=== PATIENT | female | born 1990 | race Caucasian/White ===

== ENCOUNTER 2017-09-24 00:43 | Emergency (ER) | payer MEDICAID ==
[~2017-09-24] VITALS: Ht 157.5 cm; Wt 44.9 kg
[~2017-09-24 00:43] MED LIST: ARIP5TAB4 PO; CEPH500C5 PO; CLON-528 PO; HYDR1TAB PO; IBUP-1985 PO; KETO15CR2 TOP; LAMO100T2 PO; NAPR-232 PO; NITR100C11 PO; NITR100C6 PO; ONDA4TAB59 PO; ONDA4TAB6 PO; PHEN-824 PO; PHEN-873 PO; TRAM50TA2 PO
[2017-09-24 00:48] VITALS: BP 123/85
[2017-09-24] MEDS ORDERED: ondansetron 4mg rapidly disintigrating tab PO ONE (00:50)
[2017-09-24] MEDS ORDERED: HYDROcodone/acetaminophen 5mg/325mg tablet PO ONE (00:50)
[2017-09-24] MEDS ORDERED: ONDA4TAB9 PO (01:07)
[2017-09-24] MEDS ORDERED: HYDR-3965 PO (01:07)
== END 2017-09-24 01:34 | disposition home or self-care (01) ==
LOC: ER 00:45
DX: S63.501A Unspecified sprain of right wrist, initial encounter (principal); S60.211A Contusion of right wrist, initial encounter; F15.10 Other stimulant abuse, uncomplicated; W31.2XXA Contact with powered woodworking and forming machines, initial encounter; Y93.89 Activity, other specified; Y92.89 Other specified places as the place of occurrence of the external cause; Y99.8 Other external cause status; Z98.890 Other specified postprocedural states; Z79.899 Other long term (current) drug therapy
CPT/HCPCS: 29125; 73110; 73130; 99284; A6449

== ENCOUNTER 2017-09-27 09:51 | Emergency (ER) | payer MEDICAID ==
[~2017-09-27] VITALS: Ht 157.5 cm; Wt 43.0 kg
[~2017-09-27 09:51] MED LIST changes: +HYDR-3965 PO; +ONDA4TAB9 PO
[2017-09-27 09:55] VITALS: BP 123/84
[2017-09-27] MEDS ORDERED: TRIA15CR61 TOP (10:53)
[2017-09-27] MEDS ORDERED: PRED10TA23 PO (10:54)
== END 2017-09-27 11:35 | disposition home or self-care (01) ==
LOC: ER 09:52
DX: L23.7 Allergic contact dermatitis due to plants, except food (principal); F12.10 Cannabis abuse, uncomplicated; F11.10 Opioid abuse, uncomplicated; Z79.899 Other long term (current) drug therapy
CPT/HCPCS: 99283

== ENCOUNTER 2017-10-03 10:36 | Outpatient (CLI) | payer MEDICAID ==
[~2017-10-03 10:36] MED LIST changes: +PRED10TA23 PO; +TRIA15CR61 TOP
[2017-10-03 10:37] VITALS: BP 131/84
[2017-10-03 10:48] VITALS: BP 131/84
== END 2017-10-03 11:20 | disposition home or self-care (01) ==
LOC: ORTHO 10:36
PROVIDERS: ATTEND Nurse Practitioner Family
DX: S69.91XA Unspecified injury of right wrist, hand and finger(s), initial encounter (principal); F17.210 Nicotine dependence, cigarettes, uncomplicated; X58.XXXA Exposure to other specified factors, initial encounter; Y93.89 Activity, other specified; Y92.89 Other specified places as the place of occurrence of the external cause; Y99.8 Other external cause status
CPT/HCPCS: 29075; A4590

== ENCOUNTER 2017-10-17 13:55 | Outpatient (CLI) | payer MEDICAID | END 2017-10-17 14:15 | disposition home or self-care (01) | LOC: ORTHO 13:55 | PROVIDERS: ATTEND Nurse Practitioner Family | DX: S69.91XD Unspecified injury of right wrist, hand and finger(s), subsequent encounter (principal); F17.210 Nicotine dependence, cigarettes, uncomplicated; X58.XXXD Exposure to other specified factors, subsequent encounter | CPT/HCPCS: 29260; 73110 ==

== ENCOUNTER 2017-11-08 10:12 | Emergency (ER) | payer MEDICAID ==
[~2017-11-08] VITALS: Ht 154.9 cm; Wt 45.5 kg
[~2017-11-08 10:12] MED LIST changes: -HYDR-3965 PO; -ONDA4TAB9 PO; -PRED10TA23 PO; -TRIA15CR61 TOP
[2017-11-08 10:22] VITALS: BP 111/80
[2017-11-08] MEDS ORDERED: LIDOcaine 1.5% w/epinephrine 1:200,000 5ml ampul IJ ONE (11:00)
[2017-11-08] MEDS ORDERED: CEPH-572 PO (11:25)
[2017-11-08] MEDS ORDERED: SULF1TAB49 PO (11:25)
[2017-11-08] MEDS ORDERED: HYDR-565 PO (21:52)
== END 2017-11-08 11:40 | disposition home or self-care (01) ==
LOC: ER 10:13
DX: L02.416 Cutaneous abscess of left lower limb (principal); Z79.899 Other long term (current) drug therapy
CPT/HCPCS: 10060; 99283; A6449; J3490

== ENCOUNTER 2017-11-08 21:42 | Emergency (ER) | payer MEDICAID ==
[~2017-11-08] VITALS: Ht 154.9 cm; Wt 48.0 kg
[~2017-11-08 21:42] MED LIST changes: +CEPH-572 PO; +SULF1TAB49 PO
[2017-11-08] MEDS ORDERED: HYDR-565 PO (21:52)
[2017-11-08 21:59] VITALS: BP 137/70
== END 2017-11-08 22:00 | disposition home or self-care (01) ==
LOC: ER 21:43
DX: Z00.8 Encounter for other general examination (principal); L02.416 Cutaneous abscess of left lower limb; M79.652 Pain in left thigh; Z90.49 Acquired absence of other specified parts of digestive tract; Z79.899 Other long term (current) drug therapy
CPT/HCPCS: 99283

== ENCOUNTER 2017-11-10 17:44 | Emergency (ER) | payer MEDICAID ==
[~2017-11-10] VITALS: Ht 154.9 cm; Wt 47.1 kg
[~2017-11-10 17:44] MED LIST changes: +HYDR-565 PO
[2017-11-10 17:48] VITALS: BP 127/85
[2017-11-11] MEDS ORDERED: SULF1TAB48 PO (16:44)
== END 2017-11-10 19:51 | disposition left against medical advice (07) ==
LOC: ER 17:45
DX: Z48.01 Encounter for change or removal of surgical wound dressing (principal); Z53.21 Procedure and treatment not carried out due to patient leaving prior to being seen by health care provider

== ENCOUNTER 2017-11-11 13:39 | Emergency (ER) | payer MEDICAID ==
[~2017-11-11] VITALS: Ht 154.9 cm; Wt 47.1 kg
[2017-11-11] MEDS ORDERED: LIDOcaine 1% 30ml preserv. free vial SQ STA (15:06)
[2017-11-11] MEDS ORDERED: ondansetron 4mg rapidly disintigrating tab PO ONE (15:30)
[2017-11-11] MEDS ORDERED: morphine 5 MG/ML injection IM ONE (15:30)
[2017-11-11] MEDS ORDERED: morphine 4 MG/ML inj SYRINge IV ONE (15:40)
[2017-11-11] MEDS ORDERED: morphine 2 MG/ML inj. syringe IM ONE (15:40)
[2017-11-11] MEDS ORDERED: SULF1TAB48 PO (16:44)
[2017-11-11 17:00] VITALS: BP 126/76
== END 2017-11-11 17:00 | disposition home or self-care (01) ==
LOC: ER 13:39
DX: L02.416 Cutaneous abscess of left lower limb (principal); Z79.899 Other long term (current) drug therapy
CPT/HCPCS: 10060; 96374; 99284; A6258; A6266; A6449; J2270; J3490

== ENCOUNTER 2018-02-19 19:24 | Emergency (ER) | payer MEDICAID ==
[~2018-02-19] VITALS: Ht 157.5 cm; Wt 46.3 kg
[~2018-02-19 19:24] MED LIST changes: -CEPH-572 PO; -HYDR-565 PO; -SULF1TAB49 PO
[2018-02-19 21:16] VITALS: BP 125/65
== END 2018-02-19 21:17 | disposition home or self-care (01) ==
LOC: ER 19:24
DX: S60.212A Contusion of left wrist, initial encounter (principal); Z90.49 Acquired absence of other specified parts of digestive tract; Z79.899 Other long term (current) drug therapy; Y04.8XXA Assault by other bodily force, initial encounter; Y93.89 Activity, other specified; Y92.89 Other specified places as the place of occurrence of the external cause; Y99.8 Other external cause status
CPT/HCPCS: 29125; 73110; 99284

== ENCOUNTER 2018-04-26 12:58 | Emergency (ER) | payer MEDICAID ==
[~2018-04-26] VITALS: Ht 154.9 cm; Wt 45.0 kg
[~2018-04-26 12:58] MED LIST changes: -CEPH500C5 PO
[2018-04-26 14:10] VITALS: BP 109/78
== END 2018-04-26 14:12 | disposition home or self-care (01) ==
LOC: ER 12:59
DX: S90.31XA Contusion of right foot, initial encounter (principal); S09.90XA Unspecified injury of head, initial encounter; Z90.49 Acquired absence of other specified parts of digestive tract; Z98.890 Other specified postprocedural states; Z79.899 Other long term (current) drug therapy; W01.198A Fall on same level from slipping, tripping and stumbling with subsequent striking against other object, initial encounter; Y93.89 Activity, other specified; Y92.89 Other specified places as the place of occurrence of the external cause; Y99.9 Unspecified external cause status
CPT/HCPCS: 73610; 73630; 99284; A6449

== ENCOUNTER 2018-09-16 19:43 | Emergency (ER) | payer MEDICAID ==
[~2018-09-16] VITALS: Ht 157.5 cm; Wt 48.0 kg
[~2018-09-16 19:43] MED LIST changes: +PHEN-786 PO; -PHEN-873 PO
[2018-09-16 20:50] VITALS: BP 121/71
== END 2018-09-16 21:07 | disposition home or self-care (01) ==
LOC: ER 19:44
DX: F07.81 Postconcussional syndrome (principal); Z79.899 Other long term (current) drug therapy; Z90.49 Acquired absence of other specified parts of digestive tract; V49.9XXA Car occupant (driver) (passenger) injured in unspecified traffic accident, initial encounter; Y93.89 Activity, other specified; Y92.488 Other paved roadways as the place of occurrence of the external cause; Y99.8 Other external cause status
CPT/HCPCS: 99281

== ENCOUNTER 2021-01-01 02:21 | Emergency (ER) | payer MEDICAID ==
[~2021-01-01] VITALS: Ht 162.6 cm; Wt 52.3 kg
[~2021-01-01 02:21] MED LIST changes: +ARIP5TAB14 PO; -ARIP5TAB4 PO
[2021-01-01 02:24] VITALS: BP 124/89
[2021-01-01] MEDS ORDERED: dexamethasone sod phosphate 10mg/ml inj IM STA (02:28)
[2021-01-01] MEDS ORDERED: PRED20TA PO (02:32)
== END 2021-01-01 03:05 | disposition home or self-care (01) ==
LOC: ER 02:22
DX: L23.7 Allergic contact dermatitis due to plants, except food (principal); F31.9 Bipolar disorder, unspecified; F17.210 Nicotine dependence, cigarettes, uncomplicated; Z90.49 Acquired absence of other specified parts of digestive tract; Z98.890 Other specified postprocedural states; Z79.899 Other long term (current) drug therapy
CPT/HCPCS: 96372; 99283; J1100

== ENCOUNTER 2021-04-10 21:40 | Emergency (ER) | payer MEDICAID, OTHER ==
[~2021-04-10] VITALS: Ht 157.5 cm; Wt 52.4 kg
[2021-04-10 21:54] VITALS: BP 133/86
[2021-04-11] MEDS ORDERED: ibuprofen 200mg tablet PO ONE (00:45)
[2021-04-11] MEDS ORDERED: HYDROcodone/acetaminophen 5mg/325mg tablet PO ONE (00:45)
[2021-04-11] MEDS ORDERED: ACET-3068 PO (00:51)
== END 2021-04-11 02:15 | disposition home or self-care (01) ==
LOC: ER 21:42
DX: S29.012A Strain of muscle and tendon of back wall of thorax, initial encounter (principal); S60.212A Contusion of left wrist, initial encounter; S50.812A Abrasion of left forearm, initial encounter; M54.2 Cervicalgia; R07.9 Chest pain, unspecified; F17.200 Nicotine dependence, unspecified, uncomplicated; Z79.899 Other long term (current) drug therapy; V99.XXXA Unspecified transport accident, initial encounter; Y93.89 Activity, other specified; Y92.89 Other specified places as the place of occurrence of the external cause; Y99.8 Other external cause status
CPT/HCPCS: 29125; 72040; 73110; 99284

== ENCOUNTER 2022-01-15 19:59 | Emergency (ER) | payer MEDICAID, OTHER ==
[~2022-01-15] VITALS: Ht 154.9 cm; Wt 54.5 kg
[2022-01-15] MEDS ORDERED: AMOX-580 PO (23:46)
[2022-01-15 23:50] VITALS: BP 118/72
== END 2022-01-15 23:52 | disposition home or self-care (01) ==
LOC: ER 20:00
DX: K05.30 Chronic periodontitis, unspecified (principal); H92.03 Otalgia, bilateral; K08.89 Other specified disorders of teeth and supporting structures; K04.7 Periapical abscess without sinus; H65.193 Other acute nonsuppurative otitis media, bilateral; Z90.89 Acquired absence of other organs; Z98.890 Other specified postprocedural states; Z79.2 Long term (current) use of antibiotics; Z79.899 Other long term (current) drug therapy
CPT/HCPCS: 99283

== ENCOUNTER 2022-09-15 16:58 | Emergency (ER) | payer MEDICAID ==
[~2022-09-15] VITALS: Ht 157.5 cm; Wt 52.3 kg
[2022-09-15 17:05] VITALS: BP 118/74
--- NOTE | 2022-09-15 18:30 | NUR ---
called for room, not in lobby.
== END 2022-09-15 20:04 | disposition left against medical advice (07) ==
LOC: ER 17:00
DX: N81.4 Uterovaginal prolapse, unspecified (principal); Z53.21 Procedure and treatment not carried out due to patient leaving prior to being seen by health care provider

== ENCOUNTER 2023-01-26 16:55 | Emergency (ER) | payer MEDICAID ==
[~2023-01-26] VITALS: Ht 157.5 cm; Wt 52.7 kg
[2023-01-26 16:56] VITALS: BP 106/75
[2023-01-26] MEDS ORDERED: IBUP-1986 PO (17:02)
[2023-01-26] MEDS ORDERED: CLIN-142 PO (17:02)
== END 2023-01-26 17:06 | disposition home or self-care (01) ==
LOC: ER 16:55
DX: K04.7 Periapical abscess without sinus (principal); F31.9 Bipolar disorder, unspecified; Z88.1 Allergy status to other antibiotic agents; Z88.8 Allergy status to other drugs, medicaments and biological substances; Z98.890 Other specified postprocedural states
CPT/HCPCS: 99283

== ENCOUNTER 2024-03-05 13:14 | Emergency (ER) | payer MEDICAID ==
[~2024-03-05] VITALS: Ht 157.5 cm; Wt 54.0 kg
[~2024-03-05 13:14] MED LIST changes: +ARIP5TAB12 PO; -ARIP5TAB14 PO; -CLON-528 PO; +CLON-850 PO; +IBUP-1986 PO
[2024-03-05 13:35] VITALS: BP 123/79; PULSE 104; RESP 16; TEMP 98.1; O2SAT 100
== END 2024-03-05 21:30 | disposition left against medical advice (07) ==
LOC: ER 13:15
DX: S80.812A Abrasion, left lower leg, initial encounter (principal); Z53.21 Procedure and treatment not carried out due to patient leaving prior to being seen by health care provider; W22.8XXA Striking against or struck by other objects, initial encounter; Y93.89 Activity, other specified; Y92.89 Other specified places as the place of occurrence of the external cause; Y99.8 Other external cause status

== ENCOUNTER 2024-03-06 13:12 | Emergency (ER) | payer MEDICAID ==
[~2024-03-06] VITALS: Ht 162.6 cm; Wt 60.0 kg
[2024-03-06 13:15] VITALS: BP 113/66; PULSE 65; RESP 18; TEMP 96.8; O2SAT 98
== END 2024-03-06 14:00 | disposition left against medical advice (07) ==
LOC: ER 13:12
DX: T14.8XXA Other injury of unspecified body region, initial encounter (principal); R52 Pain, unspecified; Z88.1 Allergy status to other antibiotic agents; Z88.8 Allergy status to other drugs, medicaments and biological substances; Z53.21 Procedure and treatment not carried out due to patient leaving prior to being seen by health care provider; V89.2XXA Person injured in unspecified motor-vehicle accident, traffic, initial encounter; Y93.89 Activity, other specified; Y92.89 Other specified places as the place of occurrence of the external cause; Y99.8 Other external cause status

== ENCOUNTER 2024-03-06 14:04 | Emergency (ER) | payer MEDICAID ==
[~2024-03-06] VITALS: Ht 162.6 cm; Wt 60.0 kg
[2024-03-06 14:07] VITALS: BP 113/66; PULSE 65; RESP 18; TEMP 96.8; O2SAT 98
== END 2024-03-06 15:06 | disposition left against medical advice (07) ==
LOC: ER 14:05
DX: R52 Pain, unspecified (principal); T14.8XXA Other injury of unspecified body region, initial encounter; Z88.1 Allergy status to other antibiotic agents; Z88.8 Allergy status to other drugs, medicaments and biological substances; Z53.21 Procedure and treatment not carried out due to patient leaving prior to being seen by health care provider; V89.2XXA Person injured in unspecified motor-vehicle accident, traffic, initial encounter; Y93.89 Activity, other specified; Y92.89 Other specified places as the place of occurrence of the external cause; Y99.8 Other external cause status